=== PATIENT | male | born 1990 | race Hispanic/Latino ===

== ENCOUNTER 2016-04-29 11:19 | Inpatient (IN) | payer OTHER ==
[~2016-04-29] VITALS: Ht 172.7 cm; Wt 82.3 kg
[2016-04-29 13:13] LABS: AMPHETAMINES LEVEL URINE NEGATIVE (NEGATIVE); BENZODIAZEPINES URINE NEGATIVE (NEGATIVE); COCAINE METABOLITE URINE NEGATIVE (NEGATIVE); CONTROL LINE INT CTR LINE PRESENT; METHADONE URINE NEGATIVE (NEGATIVE); OPIATES URINE NEGATIVE (NEGATIVE); TRICYCLIC ANTIDEPRESS URINE NEGATIVE (NEGATIVE)
[2016-04-29 13:16] LABS: MEAN CORPUSCULAR HEMOGLOBIN 29.2 pg (27.0-33.0); MEAN CORPUSCULAR VOLUME 85.9 fl (80.0-96.0); RED CELL DISTRIBUTION WIDTH 11.9 % (11.5-14.5)
[2016-04-29 13:44] LABS: ALBUMIN 4.3 GM/DL (3.2-5.2); ALBUMIN/GLOBULIN RATIO 1.34 (1.00-1.93); ALKALINE PHOSPHATASE 70 U/L (45-117); ALT/SGPT 12 U/L (12-78); ANION GAP 8 MEQ/L (8-16); AST/SGOT 15 U/L (15-37); BILIRUBIN,DIRECT 0.2 MG/DL (0.0-0.2); BILIRUBIN,TOTAL 1.1 MG/DL (0.2-1.0); BLOOD UREA NITROGEN 9 MG/DL (7-18); CALCIUM LEVEL 8.9 MG/DL (8.5-10.1); CARBON DIOXIDE LEVEL 28 MEQ/L (21-32); CHLORIDE LEVEL 107 MEQ/L (98-107); GLOMERULAR FILTRATION RATE > 60.0 (>60); GLUCOSE, FASTING 80 MG/DL (70-105); POTASSIUM SERUM 4.1 MEQ/L (3.5-5.1); SODIUM LEVEL 143 MEQ/L (136-145); TOTAL PROTEIN 7.5 GM/DL (6.4-8.2)
[2016-04-29] MEDS ORDERED: SLEE1TAB PO (14:29)
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
[2016-04-29 15:51] VITALS: BP 123/67
[2016-04-29] MEDS ORDERED: MAALOX 30 ML SUSP *UDC PO PRN (16:45)
[2016-04-29] MEDS ORDERED: MOM 30ML SUSPENSION UDC PO PRN (16:45)
[2016-04-29] MEDS ORDERED: chlordiazePOXIDE 25 MG CAP PO SCH (16:45)
[2016-04-29] MEDS ORDERED: chlordiazePOXIDE 25 MG CAP PO PRN (16:53)
[2016-04-29] MEDS ORDERED: THIAMINE 100 MG TAB PO ONE (17:00)
[2016-04-29 17:22] VITALS: BP 123/67
[2016-04-29 18:00] VITALS: BP 114/70
[2016-04-29] MEDS: traZODone 50 MG TAB PO PRN (21:16)
[2016-04-29] MEDS: chlordiazePOXIDE 25 MG CAP PO SCH (21:16)
[2016-04-30 06:44] VITALS: BP 136/84
[2016-04-30] MEDS: MULTIVITAMINS/MINERALS THERAP 1 TAB PO SCH (08:56)
[2016-04-30] MEDS: chlordiazePOXIDE 25 MG CAP PO SCH ×3 (08:56→20:35)
[2016-04-30] MEDS: THIAMINE 100 MG TAB PO SCH ×2 (08:57→20:35)
[2016-04-30] MEDS ORDERED: FOLIC ACID 1 MG TAB PO SCH (09:00)
[2016-04-30] MEDS: NICOTINE 14 MG/24 HR TRANSDERMAL TD SCH (09:00)
[2016-04-30] MEDS ORDERED: FLUoxetine 10 MG CAP PO ONE (10:15)
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
[2016-04-30] MEDS ORDERED: ALBUTEROL 90 MCG/ACT 8GM HFA INHALER INH PRN (11:15)
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
[2016-04-30 18:00] VITALS: BP 107/56
[2016-04-30] MEDS: traZODone 50 MG TAB PO PRN (20:34)
[2016-05-01 06:38] VITALS: BP 113/74
[2016-05-01] MEDS: NICOTINE 14 MG/24 HR TRANSDERMAL TD SCH (09:00)
[2016-05-01] MEDS: MULTIVITAMINS/MINERALS THERAP 1 TAB PO SCH (09:25)
[2016-05-01] MEDS: THIAMINE 100 MG TAB PO SCH ×2 (09:25→20:57)
[2016-05-01] MEDS: FLUoxetine 20 MG CAP PO SCH (09:25)
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
--- NOTE | 2016-05-01 16:01 | EDDOCDS ---
Physician Documentation [facility] Name: Ru Saavedra Age: 26 yrs Sex: Male : 1990 Arrival Date: 04/29/2016 Time: 11:19 Bed U4 Private MD: Disposition: 04/29 14:44 Critical Care: Critical care not applicable. Disposition: 04/29/16 14:45 Hospitalization ordered by Aniket Harman for Inpatient Admission. Preliminary diagnosis are Major depressive disorder, recurrent, moderate, Homicidal and suicidal ideations, Alcohol abuse. - Bed requested for Admit. - Status is Inpatient Admission. ml6 - Condition is Stable. - Problem is new. - Symptoms are unchanged. HPI: 11:51 This 26 yrs old Male presents to ER via Ambulance with complaints of Psych pc Problem. 11:51 The history is obtained from the patient, transfer records. The patient presents to the emergency department with suicidal ideation, depression, self-injury. He has SI and feels homicidal towards his NCO. He has been cutting his wrists and using a belt line feeder to burn his thighs and left hand. He was seen at [facility] and sent for admission. The patient has experienced similar episodes in the past, multiple times. Historical: - Allergies: no known allergies; - Home Meds: 1. none - PMHx: Asthma; Substance Abuse; - PSHx: right wrist ORIF; - The history from nurses notes was reviewed: and I agree with what is documented. - Social history: Smoking status: Cigars Patient uses alcohol on a daily basis. 1/2 liter whiskey daily. No barriers to communication noted, Speaks appropriately for age. - : The pt / caregiver states he / she is not on anticoagulants. Home medication list is obtained from the patient. - Hospitalizations: : No recent hospitalization is reported. - Exposure Risk Screening:: None identified. - Immunization history:: All immunizations up-to-date. - Family history: Not pertinent. - Social history:: the patient smokes cigarettes the patient drinks alcohol, the patient formerly used illicit drugs, including. ROS: 11:51 All systems are negative except as listed. The psychiatric and neurological components pc are also addressed in the HPI. Exam: 11:55 General Appearance: alert, no acute distress. pc 11:55 ENT: ear, nose and throat normal, pharynx normal. 11:55 Eyes: pupils equal, round and reactive to light, extraocular motions intact. 11:55 Neck: The exam reveals no acute abnormalities. ROM is normal and painless. No nuchal rigidity is noted.. 11:55 Respiratory: breathing is even and unlabored, breath sounds are normal. 11:55 Cardiovascular: regular pulse rate, regular heart rhythm, normal heart sounds, equal and full pulses bilaterally. 11:55 Abdomen: soft, non-tender, no organomegaly, normal bowel sounds. 11:55 Skin: skin color is normal, warm, dry. 11:55 Extremities: grossly normal except: noted in the palmar aspect of right wrist and palmar aspect of left wrist: superficial linear self-inflicted abrasions, noted in the lateral aspect of left hand: healed burn, noted in the right leg and left leg: healed zarate/scars to thighs. 11:55 Neuro: alert, oriented to person, place and time, cranial nerves normal as tested, no motor deficits, no sensory deficits. 11:55 Psych: mood is depressed, suicidal, affect is flat. Vital Signs: 11:41 BP 119 / 64; Pulse 64; Resp 18; Temp 98.3(O); Pulse Ox 99% on R/A; Weight 77.11 kg / ml6 170 lbs (R); Height 5 ft. 8 in. (172.72 cm) (R); Pain 0/10; 14:31 BP 113 / 68; Pulse 79; Resp 18; Temp 97.4(O); Pulse Ox 98% on R/A; dpm 11:41 Body Mass Index 25.85 (77.11 kg, 172.72 cm) [facility] MDM: 11:29 Consult PFS/PSA/Pensions Retirement Plan Specialist: Patient's case requires discussion with on-call [facility] Psychiatrist ordered. 11:29 PSA/PFS to call Nursing Anatomy Teacher, to enter patient data on [place] Safe [place] if patient 6 involuntarily admitted or transferred for SI or HI ordered. 11:29 Confirm accurate psychiatric medication list and times of last dosage ordered. [facility] 11:29 Detain Pt Until Medically/PFS Cleared ordered. 6 11:29 Acetaminophen Level Ordered. EDMS 11:29 Basic Metabolic Profile Ordered. EDMS 11:29 Complete Blood Count Ordered. EDMS 11:29 Drug Eval Toxicology ED Only Ordered. EDMS 11:29 Ethyl Alcohol (ethanol) Ordered. EDMS 11:29 Liver Profile Ordered. EDMS 11:29 Salicylate Level Ordered. EDMS 11:29 Thyroid Stimulating Hormone Ordered. EDMS 11:53 REGULAR DIET PLASTIC CAO+DIET ordered. EDMS 11:55 Differential diagnosis: depression, suicidal ideation, homicidal ideation. Plan: labs, pc PFS eval. 13:44 Consult PFS/PSA/Pensions Retirement Plan Specialist: Patient's case requires discussion with on-call [facility] Psychiatrist complete. 13:44 PSA/PFS to call Nursing Anatomy Teacher, to enter patient data on [place] Safe [place] if patient jl involuntarily admitted or transferred for SI or HI complete. 14:02 Admit to [facility]: ordered. EDMS 14:05 Acetaminophen Level Reviewed. pc 14:05 Ethyl Alcohol (ethanol) Reviewed. pc 14:05 Liver Profile Reviewed. pc 14:05 Salicylate Level Reviewed. pc 14:05 Basic Metabolic Profile Reviewed. pc 14:05 Complete Blood Count Reviewed. pc 14:05 Drug Eval Toxicology ED Only Reviewed. pc 14:05 Thyroid Stimulating Hormone Reviewed. pc 14:44 The patient has been medically cleared for psychiatric evaluation, admission and/or pc transfer. [place] Safe Act reporting: The patient poses a significant risk to self or others, and PSA/PFS has notified the Nursing Anatomy Teacher and he/she will complete the required data center project manager. Data reviewed: old medical records, vital signs, nurses notes, lab test results. Test interpretation: LAB - all labs as ordered have been reviewed, interpreted and considered in the overall management of the clinical presentation;. The patient has been re-examined and re-evaluated. There is no appreciated change of the patient's symptoms at this time. Disposition: The historical points, examination findings, and any diagnostic results supporting the provided diagnosis, were discussed with the patient or legal guardian. The need for further work-up and/or treatment in the hospital was explained. 14:49 [facility] Legal paperwork was scanned into RE[employer]I and attached to record. jl 14:51 Other: [facility] Clinic Notes was scanned into REQQI and attached to record. nav Signatures: Dispatcher [employer] EDDarnell Miller MD MD pc LaFontaine, Jon, PSA PSA Marco Antonio Menendez RN RN ml6 The chart was reviewed and I authenticate all verbal orders and agree with the evaluation and treatment provided.Corrections: (The following items were deleted from the chart) 11:51 11:29 Consult PFS/PSA/Pensions Retirement Plan Specialist ordered. ml6 pc Chart Complete MTDD
[2016-05-01] MEDS: ACETAMINOPHEN TAB 650MG DOSE (2X325MG) PO PRN (16:24)
[2016-05-01 18:00] VITALS: BP 114/63
--- NOTE | 2016-05-01 18:40 | IPN ---
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 MEDICATIONS: - Prozac 20 mg by mouth every morning - trazodone 100 mg by mouth at bedtime SUBJECTIVE: "I'm feeling better today." OBJECTIVE: Patient continues depressed with poor eye contact, psychomotor retardation, and soft, monotone speech. Patient is denying any side effect from the medication. Patient reports that trazodone may be "too strong." MENTAL STATUS EXAMINATION: Patient dressed in [facility]. Has poor eye contact. Speech is slow and soft. Mood is depressed and anxious. Affect is restricted. No delusions or hallucinations. Memory is full. Patient is fully oriented. Associations are intact. Thinking is logical. Thought content is appropriate. Patient is able to contract for safety in our unit. Insight and judgment are fair. ASSESSMENT: 1. Unspecified depressive disorder. 2. Rule out major depressive disorder versus adjustment disorder with depressed mood. 3. Alcohol use PLAN: 1. Continue with Prozac 20 mg by mouth every morning. 2. Continue with trazodone 50 mg by mouth at bedtime plus 50 mg as needed if no result. 3. Continue with thiamine, folic acid, and multivitamins as per detoxification protocol of alcohol abuse.
[2016-05-01] MEDS: traZODone 50 MG TAB PO PRN (20:58)
--- NOTE | 2016-05-01 23:06 | ECGEPIP ---
Stationary ECG Study [facility] Test Date: 2016-04-30 Pat Name: MARYCARMEN LARA Department: Room: [place] [address] Gender: M [address]: : 1990 Requested By: Larisa Byrd Order Number: [id number] Reading MD: Kailey Tsang Measurements Intervals [place] Rate: 67 P: 60 [place]: 149 QRS: 18 QRSD: 90 T: 11 QT: 367 QTc: 388 Interpretive Statements SINUS RHYTHM Electronically Signed On 05-01-2016 23:06:21 EST by Kailey Tsang
[2016-05-02 06:50] VITALS: BP 136/62
[2016-05-02] MEDS: MULTIVITAMINS/MINERALS THERAP 1 TAB PO SCH (08:50)
[2016-05-02] MEDS: FLUoxetine 20 MG CAP PO SCH (08:50)
[2016-05-02] MEDS: THIAMINE 100 MG TAB PO SCH (08:50)
[2016-05-02] MEDS: NICOTINE 14 MG/24 HR TRANSDERMAL TD SCH (08:51)
--- NOTE | 2016-05-02 17:17 | IPN ---
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 MEDICATIONS: - Prozac 20 mg by mouth every morning - Trazodone 50 mg by mouth at bedtime SUBJECTIVE: "I am feeling better." OBJECTIVE: Patient is minimizing symptoms in order to be discharged soon. He says that his is returning from [facility] today and that he has improved enough to be discharged. However patient continues to look depressed with soft monotone speech, psychomotor retardation. Patient is denying any side effect from the medication. Patient is minimizing symptoms and denies suicidal or homicidal ideation, however when he was admitted the documentation is worrisome. Patient reports improvement with the medication. MENTAL STATUS EXAMINATION Patient is dressed in [facility]. Patient is cooperative. Has fair eye contact. Speech is slow and monotone. Mood is depressed and anxious. Affect is restricted. No delusions or hallucinations. Memory is fair. Patient is fully oriented. Associations are intact. Thinking is logical. Thought content is appropriate. Patient is able to contract for safety in the unit. Insight and judgment is poor. ASSESSMENT: 1. Unspecified depressive disorder. 2. Rule out major depressive disorder versus adjustment disorder with depressed mood. 3. Alcohol abuse . PLAN: 1. Continue with Prozac 20 mg by mouth every morning. 2. Continue with trazodone 50 mg by mouth at bedtime. 3. Continue with thiamine, folic acid, and multivitamins as detoxification protocol of alcohol abuse. 4. Continue close observation.
[2016-05-02 18:00] VITALS: BP_SYST 108; BP_SYST 133; BP_DIAS 64; BP_DIAS 75
[2016-05-02] MEDS: ACETAMINOPHEN TAB 650MG DOSE (2X325MG) PO PRN (18:13)
[2016-05-02] MEDS: traZODone 50 MG TAB PO PRN (20:38)
[2016-05-03 06:39] VITALS: BP 130/68
[2016-05-03] MEDS: MULTIVITAMINS/MINERALS THERAP 1 TAB PO SCH (08:19)
[2016-05-03] MEDS: FLUoxetine 20 MG CAP PO SCH (08:20)
[2016-05-03] MEDS: NICOTINE 14 MG/24 HR TRANSDERMAL TD SCH (08:20)
[2016-05-03] MEDS: ACETAMINOPHEN TAB 650MG DOSE (2X325MG) PO PRN ×2 (12:09→20:39)
[2016-05-03 14:25] VITALS: BP 106/59
[2016-05-03 18:00] VITALS: BP 106/59
--- NOTE | 2016-05-03 18:23 | IPN ---
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 MEDICATIONS: - Prozac 20 mg by mouth every morning - trazodone 50 mg by mouth at bedtime SUBJECTIVE: "When can I go home?" OBJECTIVE: Since he knows his was returning from [facility], the patient has been mostly focused on discharge and minimizing all the symptoms and events that led to admission. The patient is denying depression, says that since he has been able to talk to our staff, has been feeling much better. However, he still appears somewhat depressed and anxious and is difficult to evaluate since the patient is only focused on discharge issues. The patient has no longer psychomotor retardation. His facial expression is not as restricted. He is denying suicidal ideation during the interview. No evidence of psychotic symptoms. No auditory or visual hallucinations or delusions. MENTAL STATUS EXAMINATION: The patient dressed in [facility]. The patient is calm and cooperative. Has fair eye contact. Speech is slow and monotone. Mood is depressed and anxious but improving. Affect is restricted but also improving. No delusions or hallucinations. Memory is fair. The patient is fully oriented. Associations are intact. Thinking is logical. Thought content is appropriate. The patient is able to contract for safety and denies suicidal or homicidal ideations during the interview, but again, he is focused on discharge and minimizing the symptoms. Insight and judgment are limited. ASSESSMENT: 1. Unspecified depressive disorder. 2. Rule out major depressive disorder versus adjustment disorder with depressed and anxious mood. 3. Alcohol abuse. PLAN: 1. Continue with Prozac 20 mg by mouth every morning. 2. Continue with trazodone 50 mg by mouth at bedtime. 3. A meeting with his has to be set up for Friday. If the patient continues to improve, he will be discharged probably after the meeting with his .
[2016-05-03] MEDS: traZODone 50 MG TAB PO PRN (20:40)
[2016-05-04 06:46] VITALS: BP 148/69
[2016-05-04] MEDS: MULTIVITAMINS/MINERALS THERAP 1 TAB PO SCH (08:16)
[2016-05-04] MEDS: NICOTINE 14 MG/24 HR TRANSDERMAL TD SCH (08:16)
[2016-05-04] MEDS: FLUoxetine 20 MG CAP PO SCH (08:16)
[2016-05-04 09:05] VITALS: BP 112/61
[2016-05-04] MEDS: ACETAMINOPHEN TAB 650MG DOSE (2X325MG) PO PRN ×2 (11:48→21:57)
[2016-05-04 18:00] VITALS: BP 122/64
[2016-05-04] MEDS: traZODone 50 MG TAB PO PRN ×2 (21:57→23:00)
[2016-05-05 06:30] VITALS: BP 119/65
[2016-05-05] MEDS: FLUoxetine 20 MG CAP PO SCH (08:37)
[2016-05-05] MEDS: MULTIVITAMINS/MINERALS THERAP 1 TAB PO SCH (08:37)
[2016-05-05] MEDS: NICOTINE 14 MG/24 HR TRANSDERMAL TD SCH (08:37)
[2016-05-05 18:00] VITALS: BP 115/65
[2016-05-05] MEDS: traZODone 50 MG TAB PO PRN ×2 (21:13→22:33)
[2016-05-05] MEDS: ACETAMINOPHEN TAB 650MG DOSE (2X325MG) PO PRN (21:14)
[2016-05-06 06:40] VITALS: BP 102/61
[2016-05-06] MEDS ORDERED: NICO14PA TD (08:25)
[2016-05-06] MEDS: NICOTINE 14 MG/24 HR TRANSDERMAL TD SCH (08:42)
[2016-05-06] MEDS: MULTIVITAMINS/MINERALS THERAP 1 TAB PO SCH (08:43)
[2016-05-06] MEDS: FLUoxetine 20 MG CAP PO SCH (08:43)
[2016-05-06] MEDS ORDERED: TRAZO50TA PO (10:24)
[2016-05-06] MEDS ORDERED: FLUO20CA9 PO (10:24)
[2016-05-06] MEDS ORDERED: MULT1TAB18 PO (11:20)
[2016-05-06] MEDS ORDERED: ALBU17IN2 INH (11:20)
--- NOTE | 2016-05-06 15:37 | MHDS ---
DATE OF ADMISSION: 04/29/2016 DATE OF DISCHARGE: 05/06/2016 LEGAL STATUS AT ADMISSION: 9.39 legal status. 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 According to the records, the patient was referred to our emergency department by a therapist at [facility]. According to the chart, the patient verbalized both suicidal and homicidal thoughts over the last 3 days. He admitted that he overdosed on Tylenol 2 days ago and then he cut both of his forearms. The patient reported that he is under a lot of stress at work, especially with a specific non-commissioned officer (NCO). He said that he is trying to work out some legal issues in family court, including providing paternity and obtaining joint custody of his daughter with a former girlfriend whose mother is now living in [facility]. He says that this NCO has been difficult to deal with in regard to the above issues. 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 After the jury decision, he was readmitted in the [employer]. He says that he is drinking alcohol excessively over the last month and he does not want to "go back in my old ways," referring to heavy alcohol consumption by the emergency department report. He is currently . His is also in active duty and is currently at [facility] [employer] [facility] [employer] [facility] ([employer] [facility]) in [place]. He reported feeling depressed with mood swings, irritable, anger, insomnia, low energy, isolating, decreased appetite, thinking negative, and having intermittent suicidal thoughts, but getting worse in the last few days. No evidence of psychotic symptoms. No auditory or visual hallucinations or delusions. He was brought to our emergency department and he did not want to drive because he was afraid that he may intentionally drive his car into something. He had no mental health problems before this admission. LABORATORY DATA AT ADMISSION: His CBC is unremarkable. CMP within normal limits except total bilirubin of 1.1. Urine drug screen (UDS) was negative. Blood alcohol level was 0.035. HOSPITAL COURSE: After the first evaluation in our unit, patient was started on Prozac 10 mg by mouth every morning and then increased to 20 mg by mouth daily, and also trazodone 50 mg by mouth nightly as needed for insomnia. With the above medication, patient was stabilized. Patient had no complications during this hospital admission. His mood has improved slowly but steadily. Patient was motivated for treatment and wanted to continue taking his medication and going to his appointments after discharge. On 05/06/2016, patient is in stable condition with no auditory or visual hallucinations, delusions, suicidal or homicidal ideation. Patient has significantly improved from admission and reports that he is going to be following recommendations. MEDICATIONS AT DISCHARGE: - Prozac 20 mg by mouth every morning - trazodone 50 mg by mouth nightly as needed for insomnia MENTAL STATUS EXAMINATION AT DISCHARGE: Patient is dressed in casual clothes. Patient is calm and cooperative. His speech is clear, coherent, with normal rate and is spontaneous. Patient has good eye contact. Mood is euthymic. Affect is appropriate and congruent with mood. Patient is oriented to time, place, person, and situation. Maintains attention and concentration correctly. Instant recall, recent and remote memory are intact. Thought processes are coherent, logical, and goal-directed. Patient does not have auditory or visual hallucinations. Patient does not have paranoid, persecutory, somatic, grandiose, or mandaen delusions. Patient denies suicidal or homicidal ideation. Judgment and insight are fair. DISCHARGE DIAGNOSES: AXIS I: Adjustment disorder with depressed and anxious mood. Alcohol abuse. AXIS II: Deferred. AXIS III: Asthma. INSTRUCTIONS TO THE PATIENT: Patient is to continue taking his medications as prescribed on followup appointments. He is advised to maintain absolute sobriety from drugs and alcohol. Patient has scheduled appointments for psychotropic medication management, individual psychotherapy, and primary care physician as outpatient.
== END 2016-05-06 12:30 | disposition home or self-care (01) | DRG 882 ==
LOC: M ED 11:19 → M PSY 15:05
PROVIDERS: ADMIT Psychiatry & Neurology Psychiatry; ATTEND Psychiatry & Neurology Psychiatry
DX: F43.23 Adjustment disorder with mixed anxiety and depressed mood (principal); R45.851 Suicidal ideations; J45.909 Unspecified asthma, uncomplicated; S61.512D Laceration without foreign body of left wrist, subsequent encounter; F17.290 Nicotine dependence, other tobacco product, uncomplicated; S61.511D Laceration without foreign body of right wrist, subsequent encounter; F19.10 Other psychoactive substance abuse, uncomplicated; F10.10 Alcohol abuse, uncomplicated; R45.850 Homicidal ideations; Z79.899 Other long term (current) drug therapy; Z91.5 Personal history of self-harm; Z83.3 Family history of diabetes mellitus; Z81.8 Family history of other mental and behavioral disorders; Z83.49 Family history of other endocrine, nutritional and metabolic diseases; X78.1XXD Intentional self-harm by knife, subsequent encounter; Y99.9 Unspecified external cause status

== ENCOUNTER 2017-05-04 23:28 | Emergency (ER) | payer OTHER ==
[2017-05-05] MEDS: NAPROXEN 250 MG TAB PO (03:45)
== END 2017-05-05 04:03 | disposition home or self-care (01) ==
LOC: M ED 23:28
DX: R07.89 Other chest pain (principal); G47.33 Obstructive sleep apnea (adult) (pediatric)
CPT/HCPCS: 71101

== ENCOUNTER → 2017-05-11 | Outpatient (CLI) | payer OTHER | LOC: M SLEEP 20:00 | DX: G47.33 Obstructive sleep apnea (adult) (pediatric) (principal) ==